=== PATIENT | female | born 1950 | race Caucasian/White ===

== ENCOUNTER 2019-11-15 00:30 | Emergency (ER) | payer OTHER, BC ==
[~2019-11-15] VITALS: Ht 177.8 cm; Wt 129.3 kg
[2019-11-15 01:58] LABS: BASOPHILS 0.5 % (0.0-2.0); HEMOGLOBIN 10.5 gm/dL (12.0-15.0); POLYS 82.1 % (36.0-66.0); RDW 22.8 % (10.5-14.5); WBC 8.8 thou/uL (4.0-11.0)
[2019-11-15 01:59] LABS: ABSOLUTE NEUTROPHILS 7.2 thou/uL (1.4-8.2); EOSINOPHILS 2.2 % (0.0-3.0); HEMATOCRIT 33.8 % (37.0-47.0); LYMPHOCYTES 4.6 % (24.0-44.0); MCV 100.1 fL (80.0-100.0); MONOCYTES 10.6 % (1.0-8.0); PLATELET COUNT 244 thou/uL (150-400); RBC 3.38 mil/uL (4.20-5.00)
[2019-11-15 02:34] LABS: CALCIUM 8.9 mg/dL (8.5-10.1); CREATININE 3.9 mg/dL (0.6-1.0)
[2019-11-15 02:43] LABS: TROPONIN-I 0.06 ng/mL (<0.06)
[2019-11-15] MEDS ORDERED: CENTANY30 GM TP (04:45)
[2019-11-15] MEDS ORDERED: DOXYCYCLINE 10100 MG PO (04:46)
[2019-11-15] MEDS ORDERED: VIBRAMYCIN 100100 M2 PO (04:47)
[2019-11-15] MEDS ORDERED: XANAX 0.25 MG0.25 MG PO (04:48)
[2019-11-15] MEDS ORDERED: IPRAT-ALBUT 0.5-3 ML INH (04:50)
[2019-11-15] MEDS ORDERED: LIPITOR20 MG PO (04:50)
[2019-11-15] MEDS ORDERED: ARIMIDEX1 MG PO (04:51)
[2019-11-15] MEDS ORDERED: FLORANEX TABLE1 EACH PO (04:52)
[2019-11-15] MEDS ORDERED: CALCIUM CARBON500 MG PO (04:53)
[2019-11-15] MEDS ORDERED: AMOXICILLIN 50500 MG PO (04:53)
[2019-11-15] MEDS ORDERED: ELIQUIS2.5 MG PO (04:54)
[2019-11-15] MEDS ORDERED: MIDODRINE HCL 55 M1 PO (04:55)
[2019-11-15] MEDS ORDERED: LANTUS SUBQ (04:55)
[2019-11-15] MEDS ORDERED: RENAL-VITE TAB0.8 MG PO (04:56)
[2019-11-15] MEDS ORDERED: OXYBUTYNIN 5 MG5 M2 PO (04:56)
[2019-11-15] MEDS ORDERED: PROTONIX40 M2 PO (04:57)
[2019-11-15 06:05] VITALS: BP 110/60
--- NOTE | 2019-11-15 07:49 | EKG ---
[facility] [place] [address] ELECTROCARDIOGRAM REPORT Name: ELIAZAR FARR Room #: [facility]#: [id number] Admission: 11/15/19 Attend Phys: Discharge: 11/15/19 Date of : 48 Report #: [id number] THIS REPORT FOR: cc: Elvis Lowe MD, Simon J. MD Lundgren,Connor Mayo MD [facility] ~ THIS REPORT FOR: //name// [facility] ED Test Date: 2019-11-15 Test Time: 01:42:10 Pat Name: ELIAZAR FARR Department: Room: Gender: F Patient Liaison: ASHLYN : 1950 Requested By: Negrito Duke Order Number: [id number] MD: Connor Fitzpatrick Measurements Intervals [place] Rate: 113 P: [place]: QRS: -39 QRSD: 106 T: 116 QT: 340 QTc: 467 Interpretive Statements Atrial fibrillation Inferior infarct, old Poor R wave progression Lateral T wave abnormality No previous ECG available for comparison Electronically Signed On 11-15-2019 7:49:24 CDT by Connor Fitzpatrick [email or web address] <ELECTRONICALLY SIGNED> By: Connor Fitzpatrick MD, [facility] 11/15/19 [id number] Connor Fitzpatrick MD, [facility] /EPI
== END 2019-11-15 06:06 | disposition home or self-care (01) ==
LOC: ER 00:30
PROVIDERS: Emergency Medicine
DX: F41.9 Anxiety disorder, unspecified (principal); I48.0 Paroxysmal atrial fibrillation; I12.0 Hypertensive chronic kidney disease with stage 5 chronic kidney disease or end stage renal disease; E11.22 Type 2 diabetes mellitus with diabetic chronic kidney disease; N18.6 End stage renal disease; Z99.2 Dependence on renal dialysis; Z79.4 Long term (current) use of insulin; Z79.2 Long term (current) use of antibiotics; Z79.899 Other long term (current) drug therapy